=== PATIENT | female | born 1940 | race Caucasian/White ===

== ENCOUNTER 2016-04-05 08:59 | Outpatient (CLI) | payer MEDICARE ==
[2012-12-05 09:14] VITALS: BP 127/66
[2016-04-05 09:27] LABS: BASOPHILS % 0.8 (0.0-1.5); EOSINOPHILS % 4.9 % (0.0-6.8); LYMPHOCYTES # 2.8 # k/uL (0.6-4.0); MEAN CORPUSCULAR HEMOGLOBIN 31.5 pg (28.0-34.0); MONOCYTES # 0.3 # k/uL (0.0-0.9); MONOCYTES % 4.1 % (0.0-11.0); NEUTROPHILS # 4.4 # k/uL (1.4-7.7)
[2016-04-05 09:49] LABS: eGFR (African) > 60; eGFR (Non-African) > 60
[2016-04-05 19:04] LABS: PROTEIN mg/dL 10 mg/dL
== END 2016-04-05 09:00 ==
LOC: LAB 08:59
PROVIDERS: ATTEND Nurse Practitioner
DX: D49.9 Neoplasm of unspecified behavior of unspecified site (principal); R73.9 Hyperglycemia, unspecified; I10 Essential (primary) hypertension; E03.9 Hypothyroidism, unspecified; E78.5 Hyperlipidemia, unspecified; C67.9 Malignant neoplasm of bladder, unspecified; H91.93 Unspecified hearing loss, bilateral
CPT/HCPCS: 36415; 80053; 80061; 82570; 83036; 84156; 84443; 85025

== ENCOUNTER 2016-10-19 09:02 | Outpatient (CLI) | payer MEDICARE ==
[2012-12-05 09:14] VITALS: BP 127/66
[2016-10-19 09:52] LABS: eGFR (African) > 60; eGFR (Non-African) > 60
== END 2016-10-19 09:03 ==
LOC: LAB 09:02
PROVIDERS: ATTEND Nurse Practitioner
DX: R73.9 Hyperglycemia, unspecified (principal); I10 Essential (primary) hypertension; E03.9 Hypothyroidism, unspecified; E78.5 Hyperlipidemia, unspecified; C67.9 Malignant neoplasm of bladder, unspecified; H91.93 Unspecified hearing loss, bilateral; Z68.30 Body mass index [BMI] 30.0-30.9, adult
CPT/HCPCS: 36415; 80053; 83036

== ENCOUNTER 2017-04-08 08:38 | Outpatient (CLI) | payer MEDICARE ==
[2012-12-05 09:14] VITALS: BP 127/66
[2017-04-08 09:05] LABS: BASOPHILS % 0.8 (0.0-1.5); EOSINOPHILS % 2.6 % (0.0-6.8); MEAN CORPUSCULAR HEMOGLOBIN 30.8 pg (28.0-34.0); MEAN CORPUSCULAR VOLUME 91.3 fl (80.0-100.0); MONOCYTES % 4.3 % (0.0-11.0); NEUTROPHILS # 7.8 # k/uL (1.4-7.7)
[2017-04-08 09:08] LABS: APPEARANCE,URINE Clear (CLEAR); COLOR,URINE Yellow (YELLOW); OCCULT BLOOD,URINE Negative (NEGATIVE); UROBILINOGEN URINE 0.2 Eu (0.2-1.0)
[2017-04-08 09:34] LABS: eGFR (African) > 60; eGFR (Non-African) > 60
[2017-04-09 09:01] LABS: PROTEIN mg/dL 10 mg/dL
== END 2017-04-08 08:40 ==
LOC: LAB 08:38
PROVIDERS: ATTEND Nurse Practitioner
DX: R73.9 Hyperglycemia, unspecified (principal); I10 Essential (primary) hypertension; E03.9 Hypothyroidism, unspecified; E78.5 Hyperlipidemia, unspecified; C67.9 Malignant neoplasm of bladder, unspecified; H91.93 Unspecified hearing loss, bilateral
CPT/HCPCS: 36415; 80053; 80061; 81002; 82306; 82570; 83036; 84156; 84443; 85025

== ENCOUNTER 2017-05-30 10:09 | Outpatient (CLI) | payer MEDICARE ==
[2012-12-05 09:14] VITALS: BP 127/66
== END 2017-05-30 10:10 ==
LOC: LAB 10:09
PROVIDERS: ATTEND Nurse Practitioner
DX: R73.9 Hyperglycemia, unspecified (principal); I10 Essential (primary) hypertension; E03.9 Hypothyroidism, unspecified; E78.5 Hyperlipidemia, unspecified; C67.9 Malignant neoplasm of bladder, unspecified; H91.93 Unspecified hearing loss, bilateral; Z68.29 Body mass index [BMI] 29.0-29.9, adult
CPT/HCPCS: 36415; 84443

== ENCOUNTER 2017-10-19 09:20 | Outpatient (CLI) | payer MEDICARE ==
[2012-12-05 09:14] VITALS: BP 127/66
== END 2017-10-19 09:22 ==
LOC: LAB 09:20
PROVIDERS: ATTEND Nurse Practitioner
DX: R73.9 Hyperglycemia, unspecified (principal); I10 Essential (primary) hypertension; E03.9 Hypothyroidism, unspecified; E78.5 Hyperlipidemia, unspecified; C67.9 Malignant neoplasm of bladder, unspecified; H91.93 Unspecified hearing loss, bilateral; Z68.29 Body mass index [BMI] 29.0-29.9, adult
CPT/HCPCS: 36415; 84443

== ENCOUNTER 2017-11-22 14:44 | Outpatient (CLI) | payer MEDICARE ==
[2012-12-05 09:14] VITALS: BP 127/66
== END 2017-11-22 14:46 ==
LOC: LAB 14:44
PROVIDERS: ATTEND Nurse Practitioner
DX: R73.9 Hyperglycemia, unspecified (principal); I10 Essential (primary) hypertension; E03.9 Hypothyroidism, unspecified; E78.5 Hyperlipidemia, unspecified; C67.9 Malignant neoplasm of bladder, unspecified; H91.93 Unspecified hearing loss, bilateral; Z68.29 Body mass index [BMI] 29.0-29.9, adult; Z68.30 Body mass index [BMI] 30.0-30.9, adult
CPT/HCPCS: 36415; 84443; 84550